=== PATIENT | female | born 1990 | race Caucasian/White ===

== ENCOUNTER 2017-08-03 10:22 | Emergency (ER) | payer MEDICAID ==
[~2017-08-03] VITALS: Ht 157.5 cm; Wt 66.0 kg
[2017-08-03 10:37] VITALS: BP 127/74; PULSE 114; RESP 16; TEMP 98.3; O2SAT 100
--- NOTE | 2017-08-03 11:15 | PD ---
HPI Chief Complaint: Improvement Coordinator Problem/Complaint Time Seen by Provider: 10:56 Travel History International Travel<30 days: No Contact w/Intl Traveler<30days: No Traveled to known affect area: No History of Present Illness HPI 26yo who is [id number] by LMP 05/24/17 presents to the ED with c/o vaginal bleeding, lower abdominal cramping for 2 days. Denies any fever, chest pain, sob, n/v, dysuria. Pt has not seen an OBGYN or had an ultrasound for this . Said she is O+. PFSH Past Medical History Diminished Hearing: No Tetanus Vaccination: < 5 Years Influenza Vaccination: Yes ?: LMP: 05/24/17 Past Surgical History Section: Yes Social History Alcohol Use: No Tobacco Use: No Substance Use: No Allergies-Medications (Allergen,Severity, Reaction): Coded Allergies: No Known Allergies (Unverified , 08/03/17) Reported Meds & Prescriptions Reported Meds & Active Scripts Active No Active Prescriptions or Reported Medications Review of Systems Except as stated in HPI: all other systems reviewed are Neg Physical Exam Narrative GENERAL: 26yo F in mild distress. SKIN: Focused skin assessment warm/dry. HEAD: Atraumatic. Normocephalic. CARDIOVASCULAR: Regular rate and rhythm. No murmur appreciated. RESPIRATORY: No accessory muscle use. Clear to auscultation. Breath sounds equal bilaterally. GASTROINTESTINAL: Abdomen soft, +TTP suprapubic region. No rebound tenderness or guarding. PELVIC: +Blood clots. Cervical os closed. No CMT or adnexal tenderness bilaterally. MUSCULOSKELETAL: No obvious deformities. No clubbing. No cyanosis. No edema. NEUROLOGICAL: Awake and alert. No obvious cranial nerve deficits. Motor grossly within normal limits. Normal speech. PSYCHIATRIC: Appropriate mood and affect; insight and judgment normal. Data Data Last Documented VS Vital Signs Date Time Temp Pulse Resp B/P (MAP) Pulse Ox O2 Delivery O2 Flow Rate FiO2 08/03/17 10:47 16 08/03/17 10:37 98.3 114 127/74 (91) 100 Orders Orders Beta Hcg (Quant/Titer) (08/03/17 11:09) Complete Blood Count With Diff (08/03/17 11:09) Basic Metabolic Panel (Bmp) (08/03/17 11:09) Gc And Chlamydia Pcr (08/03/17 11:09) Type And Screen (08/03/17 11:09) Wet Prep Profile (08/03/17 11:09) Urinalysis - C+S If Indicated (08/03/17 11:09) Us Pelvis (Ques Pr/Ect)W Trans (08/03/17 ) Labs Laboratory Tests Test 08/03/17 10:40 08/03/17 11:17 08/03/17 11:34 Urine Collection Type CLEAN CATCH Urine Color RED Urine Turbidity TURBID Urine pH 7.0 Urine Specific Garrett 1.024 Urine Protein 300 OR GREATER mg/dL Urine Glucose (UA) NEG mg/dL Urine Ketones NEG mg/dL Urine Occult Blood LARGE Urine Nitrite NEG Urine Bilirubin NEG Urine Leukocyte Esterase TRACE Urine RBC INNUM /hpf Urine WBC 3-5 /hpf Urine Squamous Epithelial Cells 0-5 /hpf Urine Bacteria RARE /hpf Microscopic Urinalysis Comment CULT NOT INDICATED White Blood Count 9.2 TH/MM3 Red Blood Count 4.17 MIL/MM3 Hemoglobin 11.2 GM/DL Hematocrit 34.7 % Mean Corpuscular Volume 83.3 FL Mean Corpuscular Hemoglobin 26.8 PG Mean Corpuscular Hemoglobin Concent 32.2 % Red Cell Distribution Width 16.1 % Platelet Count 241 TH/MM3 Mean Platelet Volume 8.0 FL Neutrophils (%) (Auto) 79.6 % Lymphocytes (%) (Auto) 13.6 % Monocytes (%) (Auto) 4.6 % Eosinophils (%) (Auto) 0.5 % Basophils (%) (Auto) 1.7 % Neutrophils # (Auto) 7.4 TH/MM3 Lymphocytes # (Auto) 1.2 TH/MM3 Monocytes # (Auto) 0.4 TH/MM3 Eosinophils # (Auto) 0.0 TH/MM3 Basophils # (Auto) 0.2 TH/MM3 CBC Comment DIFF FINAL Differential Comment Blood Urea Nitrogen 7 MG/DL Creatinine 0.55 MG/DL Random Glucose 85 MG/DL Calcium Level 8.2 MG/DL Sodium Level 140 MEQ/L Potassium Level 3.6 MEQ/L Chloride Level 106 MEQ/L Carbon Dioxide Level 22.6 MEQ/L Anion Gap 11 MEQ/L Estimat Glomerular Filtration Rate 132 ML/MIN Human Chorionic Gonadotropin, Quant 2718 MIU/ML Clue Cells (Wet Prep) NONE SEEN Vaginal Trichomonas (Wet Prep) NONE SEEN Vaginal Yeast (Wet Prep) NONE SEEN MDM Medical Decision Making Medical Screen Exam Complete: Yes Emergency Medical Condition: Yes Differential Diagnosis Threatened vs. complete vs. ectopic Narrative Course 26yo F with vaginal bleeding and lower abdominal cramping for 2 days. Pt is [id number] by LMP. Labs reviewed, no leukocytosis. H/H 11.2/34.7. bHCG 2718. UA showed blood. Culture not indicated. US showed no intrauterine gestational sac which could be very early , missed or ectopic . Recommend serial bHCG. I discussed with OB hospitalist Dr. Ortiz who recommends repeat bHCG and US in 2 days. Pt said her cramping has actually resolved and currently has no abdominal pain. Bleeding has improved as well. Blood type is O+. Informed pt that this could be ectopic and she has to come back in 2 days for repeat bHCG and US or OB in 2 days. Pt had 5 pads since 6am so bleeding has slowed down. She is well appearing and reliable. Return precautions given. Diagnosis Primary Impression: Vaginal bleeding in Patient Instructions: General Instructions Departure Forms: Tests/Procedures Additional Instructions: Please return to the ED or OBGYN's office in 2 days for repeat bHCG and US. Please return earlier if bleeding worsens. Med/Other Pt SpecificInfo: No Change to Meds Scripts No Active Prescriptions or Reported Meds Disposition: 01 DISCHARGE HOME Condition: Stable Soumya Huitron DO Aug 03, 2017 11:15
[2017-08-03 11:26] LABS: AUTOMATED NEUTROPHIL # 7.4 TH/MM3 (1.8-7.7); BASOPHIL # 0.2 TH/MM3 (0-0.2); BASOPHIL % 1.7 % (0.0-2.0); EOSINOPHIL % 0.5 % (0.0-4.0); HEMATOCRIT 34.7 % (35.0-46.0); HEMOGLOBIN 11.2 GM/DL (11.6-15.3); LYMPH % 13.6 % (9.0-44.0); LYMPHOCYTE # 1.2 TH/MM3 (1.0-4.8); MEAN CELL VOLUME 83.3 FL (80.0-100.0); MEAN CORPUSCULAR HEMOGLOBIN 26.8 PG (27.0-34.0); MEAN CORPUSCULAR HGB CONC 32.2 % (32.0-36.0); MONO % 4.6 % (0.0-8.0); MONOCYTE # 0.4 TH/MM3 (0-0.9); NEUT % 79.6 % (16.0-70.0); PLATELET COUNT 241 TH/MM3 (150-450); RED BLOOD COUNT 4.17 MIL/MM3 (4.00-5.30); RED CELL DISTRIBUTION WIDTH 16.1 % (11.6-17.2); WHITE BLOOD COUNT 9.2 TH/MM3 (4.0-11.0)
[2017-08-03 11:38] LABS: URINE COLOR RED (YELLW/STRAW)
[2017-08-03 11:40] LABS: CALCIUM 8.2 MG/DL (8.5-10.1)
[2017-08-03 11:40] LABS: GLUCOSE,URINE NEG (NEG); KETONE, URINE NEG (NEG)
[2017-08-03 11:41] LABS: BICARBONATE 22.6 MEQ/L (21.0-32.0)
[2017-08-03 11:41] LABS: BLOOD, URINE LARGE (NEG)
[2017-08-03 11:42] LABS: BILIRUBIN, URINE NEG (NEG); NITRITE,URINE NEG (NEG); URINE LEUKOCYTE ESTERASE TRACE (NEG)
[2017-08-03 11:44] LABS: CREATININE 0.55 MG/DL (0.50-1.00)
[2017-08-03 11:49] LABS: BACTERIA, URINE RARE /hpf; RBC, URINE INNUM /hpf (0-3); SQUAMOUS EPITHELIAL CELL URINE 0-5 /hpf (0-5)
--- NOTE | 2017-08-03 13:03 | RADRPT ---
EXAM DATE/TIME: 08/03/2017 12:07 [facility] COMPARISON: No previous studies available for comparison. INDICATIONS : Pelvic bleeding and cramping. LAB(S): Beta-hC MEDICAL HISTORY : . x1. SURGICAL HISTORY : section. ENCOUNTER: Initial ACUITY: 2 days PAIN SCORE: 5/10 LOCATION: Bilateral pelvis MEASUREMENTS: UTERUS: 11.1 x 7.6 x 6.9 cm ENDOMETRIAL STRIPE: >20 mm RIGHT OVARY: 3.6 x 2.0 x 2.0 cm LEFT OVARY: 2.2 x 2.2 x 1.1 cm FREE FLUID: Yes Trace in anterior cul de sac. CROWN RUMP LENGTH: Non visualized. FHR: Non visualized. FINDINGS: No intrauterine gestational sac is identified. The findings raise the possibility of very early intra uterine , missed and ectopic . Correlation with serial beta hCG levels is recommended. Some fluid is noted within the endometrial/cervical canal. The ovaries are normal in siz e bilaterally. There are 2 cystic lesions within the right ovary measuring 1.6 and 1.1 cm proximally. Some free fluid is noted within the cul-de-sac. CONCLUSION: 1. No intrauterine gestational sac is identified. The findings raise the possibility of very early in trauterine , missed and ectopic . Correlation with serial beta-hCG levels is recommended. 2. Some free fluid within the cul-de-sac. 3. No adnexal mass noted. Leonard Sunshine MD on August 03, 2017 at 12:58 Board Certified Radiologist. This report was verified electronically.
[2017-08-03 15:20] VITALS: BP 90/61
== END 2017-08-03 15:42 | disposition home or self-care (01) ==
LOC: PHED 10:22
DX: O20.9 Hemorrhage in early pregnancy, unspecified (principal)
CPT/HCPCS: 76700; 76817; 80048; 81001; 84702; 85025; 86850; 86900; 86901; 87210; 87491; 87591; 99284

== ENCOUNTER 2017-08-05 09:35 | Emergency (ER) | payer MEDICAID ==
[2017-08-05 09:42] VITALS: BP 101/66; PULSE 98; RESP 16; TEMP 98.5; O2SAT 100
--- NOTE | 2017-08-05 11:18 | PD ---
HPI Chief Complaint: Related Problem Time Seen by Provider: 11:01 Travel History International Travel<30 days: No Contact w/Intl Traveler<30days: No Traveled to known affect area: No History of Present Illness HPI The patient is a 26-year-old female who presents to the emergency department for reevaluation of possible spontaneous . The patient is a who states she is O+ his last menstrual cycle was May 24, 2017. The patient was seen in the emergency department 2 days ago where she had a beta hCG that was in 1999 and an ultrasound which did not reveal an IUP. Patient was advised return in 48 hours for repeat beta hCG. The patient states she did pass tissue 2 days ago while in the emergency department having the ultrasound performed. The patient states the bleeding has resolved, like a normal menstrual cycle, and the cramping has resolved. She denies any abdominal pain. She denies any acute nausea, vomiting, diarrhea, or dysuria. Symptoms have resolved. The patient's previous 2 children were delivered in [place], [place], she does not have a local primary physician. PFS Past Medical History Diminished Hearing: No ?: Past Surgical History Section: Yes Social History Alcohol Use: No Tobacco Use: No Substance Use: No Allergies-Medications (Allergen,Severity, Reaction): Coded Allergies: No Known Allergies (Unverified , 08/03/17) Reported Meds & Prescriptions Reported Meds & Active Scripts Active No Active Prescriptions or Reported Medications Review of Systems Except as stated in HPI: all other systems reviewed are Neg HENT: No: Lightheadedness Cardiovascular: No: Syncope Gastrointestinal: No: Nausea, Vomiting, Abdominal Pain Genitourinary: Positive: Other (as noted in the history of present illness) Musculoskeletal: No: Weakness Neurologic: No: Dizziness Physical Exam Narrative GENERAL: Awake, alert, pleasant 26-year-old female who appears her stated age and is in no acute respiratory distress. SKIN: Focused skin assessment warm/dry. HEAD: Atraumatic. Normocephalic. EYES: No injection or drainage. ENT: No nasal bleeding or discharge. Mucous membranes pink and moist. NECK: Trachea midline. No JVD. CARDIOVASCULAR: Regular rate and rhythm. No murmur appreciated. RESPIRATORY: No accessory muscle use. Clear to auscultation. Breath sounds equal bilaterally. GASTROINTESTINAL: Abdomen soft, non-tender, nondistended. No rebound tenderness , guarding, or rigidity. Benign exam. MUSCULOSKELETAL: No obvious deformities. No clubbing. No cyanosis. No edema. NEUROLOGICAL: Awake and alert. No obvious cranial nerve deficits. Motor grossly within normal limits. Normal speech. PSYCHIATRIC: Appropriate mood and affect; insight and judgment normal. Data Data Last Documented VS Vital Signs Date Time Temp Pulse Resp B/P (MAP) Pulse Ox O2 Delivery O2 Flow Rate FiO2 08/05/17 09:42 98.5 98 16 101/66 (78) 100 Orders Orders Beta Hcg (Quant/Titer) (08/05/17 11:11) Labs Laboratory Tests Test 08/05/17 11:37 Human Chorionic Gonadotropin, Quant 441 MIU/ML [facility] Medical Decision Making Medical Screen Exam Complete: Yes Emergency Medical Condition: Yes Medical Record Reviewed: Yes Interpretation(s) Laboratory Tests Test 08/05/17 11:37 Human Chorionic Gonadotropin, Quant 441 MIU/ML Differential Diagnosis Differential diagnosis includes complete AB, missed AB, normal , ectopic . Narrative Course I reviewed the patient's ultrasound findings from 2 days ago, there is no evidence of IUP, she did have some tissue within the cervical canal. She also had some free fluid in the cul-de-sac, but there is no evidence of IUP. The beta-hCG was approximately 2500. Therefore, repeat beta ACG was sent to lab. The patient is currently asymptomatic with no abdominal pain or bleeding. Pelvic exam was deferred. The patient states she is O+, therefore, no RhoGAM is indicated. The patient's beta ACG on August 03 was 2718, today's 441 consistent with spontaneous . The patient has no current bleeding or pain, I highly doubt ectopic . The patient already has 2 children, she is advised to follow-up with an director of digital technology primary physician for repeat beta ACG to ensure that it returns to normal. She will be provided a copy of her labs today. Diagnosis Primary Impression: Spontaneous Patient Instructions: General Instructions Additional Instructions: Please provide the patient a copy of her lab results today and her lab results and ultrasound results from 2 days ago. Follow-up with her primary physician, repeat beta HCG in 1-2 weeks to ensure that it resolves. Return if symptoms worsen or progress. Med/Other Pt SpecificInfo: No Change to Meds Scripts No Active Prescriptions or Reported Meds Disposition: 01 DISCHARGE HOME Condition: Stable Deric Lopez MD Aug 05, 2017 11:18
== END 2017-08-05 13:06 | disposition home or self-care (01) ==
LOC: PHED 09:35
DX: O03.9 Complete or unspecified spontaneous abortion without complication (principal)
CPT/HCPCS: 84702; 99281